=== PATIENT | female | born 1950 | race Caucasian/White ===

== ENCOUNTER 2016-07-03 21:33 | Emergency (ER) | payer OTHER ==
[2016-07-03 22:21] LABS: BASOPHIL 0.5 % (0-2); EOSINOPHIL 1.2 % (0-7); HCT 36.2 % (37.0-47.0); HGB 11.9 g/dl (12.5-16.0); LYMPHOCYTE 37.4 % (15-48); MCH 30.1 pg (25.0-31.0); MCHC 32.9 g/dL (32.0-36.0); MCV 91.4 fL (78.0-100.0); MONOCYTE 6.9 % (0-12); MPV 11.1 fL (6.0-9.5); PLT 278 K/uL (150-400); RBC 3.96 M/uL (4.20-5.40); RDW 13.3 % (11.5-14.0); WBC 7.6 K/uL (4.0-10.5)
[2016-07-03 22:34] LABS: LACTIC ACID 0.7 mmol/L (0.5-2.2)
[2016-07-03 22:35] LABS: ALBUMIN 4.4 g/dL (3.4-4.8); BILIRUBIN - TOTAL 0.2 mg/dL (0.1-1.0); CREATININE 0.8 mg/dL (0.5-1.0); GLOBULIN (CALCULATION) 2.7 g/dL (2.2-4.2); POTASSIUM 3.6 mmol/L (3.5-5.1); TOTAL PROTEIN 7.1 g/dL (6.4-8.3)
[2016-07-04 03:15] LABS: BILIRUBIN NEGATIVE (NEGATIVE); BLOOD NEGATIVE Ery/uL (NEGATIVE); CLARITY CLEAR (CLEAR); COLOR COLORLESS (YELLOW); GLUCOSE (U) NORMAL (NORMAL); KETONE (U) NEGATIVE (NEGATIVE); LEUKOCYTES NEGATIVE Leu/uL (NEGATIVE); NITRITE NEGATIVE (NEGATIVE); PROTEIN NEGATIVE (NEGATIVE); SPECIFIC GRAVITY <=1.005 (1.001-1.030); UROBILINOGEN 0.2 mg/dL (0.2-1.0)
== END 2016-07-04 05:14 | disposition home or self-care (01) ==
LOC: FER 21:33
PROVIDERS: Emergency Medicine
DX: R10.31 Right lower quadrant pain (principal)
CPT/HCPCS: 36415; 80053; 81003; 83605; 83690; 84484; 85025; 87040; 87088; J2270; J2405; Q9967

== ENCOUNTER → 2021-08-29 | Day surgery (SDC) | payer MEDICARE ==
[~2021-08-29] VITALS: Ht 172.7 cm; Wt 70.5 kg
[~2021-08-29] MED LIST: CELEXA20 MG PO; DULERA 200 MCG8.8 GM INH; DUPIXENT P300 MG/2 M IJ; LIPITOR20 MG PO; PANTOPRAZOLE SO40 MG PO; SINGULAIR10 MG PO; SYNTHROID112 MCG PO
[2021-08-29 07:31] LABS: HCT 36.5 % (37.0-47.0); HGB 11.7 g/dl (12.5-16.0); MCH 29.3 pg (25.0-31.0); MCHC 32.1 g/dL (32.0-36.0); MCV 91.3 fL (78.0-100.0); MPV 11.1 fL (6.0-9.5); RDW 12.8 % (11.5-14.0); WBC 5.3 K/uL (4.0-10.5)
== END | disposition home or self-care (01) ==
LOC: FAS 06:08
PROVIDERS: Legal Medicine
DX: M75.01 Adhesive capsulitis of right shoulder (principal)
CPT/HCPCS: 36415; 97162; 97530-GP; J2250; J2704; J2795; J7120